=== PATIENT | female | born 1965 | race Two or more races ===

== ENCOUNTER 2019-04-19 17:24 | Emergency (ER) | payer MEDICAID ==
[~2019-04-19] VITALS: Ht 165.1 cm; Wt 75.7 kg
[2019-04-19 17:34] VITALS: BP 169/76
== END 2019-04-19 20:03 | disposition home or self-care (01) ==
LOC: ER 17:24
DX: S96.911A Strain of unspecified muscle and tendon at ankle and foot level, right foot, initial encounter (principal); J44.9 Chronic obstructive pulmonary disease, unspecified; Z87.891 Personal history of nicotine dependence; Z88.6 Allergy status to analgesic agent; Z88.0 Allergy status to penicillin; X58.XXXA Exposure to other specified factors, initial encounter; Y93.89 Activity, other specified; Y92.89 Other specified places as the place of occurrence of the external cause; Y99.8 Other external cause status
CPT/HCPCS: 73630